=== PATIENT | male | born 1945 | race Caucasian/White ===

== ENCOUNTER 2020-01-02 11:21 | Inpatient (IN) ==
--- NOTE | 2020-01-02 12:01 | Emergency Department Note ---
General Adult HPI - General Chief complaint: Fall Stated complaint: Possible hit to head, cough Time Seen by Provider: 01/02/20 11:57 Source: patient Mode of arrival: ambulatory Limitations: no limitations - History of Present Illness HPI Narrative: Patient presents emergency department via EMS for evaluation of confusion and fall. Patient has a 2-year history of problems with confusion. Normally his neighbor checks in on him. Last night the neighbor called and the patient did not answer this morning the neighbor let themselves into the patient's home and found the patient on the floor. It was unknown how long patient had been on the floor neighbor called EMS for evaluation. Patient is brought to the emergency department via EMS. He does have a bruise above his right eye. He states that he feels a little bit lightheaded but otherwise is feeling fine. He has had a cough. No other complaints. - Related Data Home Medications Medication Instructions Recorded Confirmed Aspirin [Adult Low Dose Aspirin EC] 81 mg PO HS 05/06/15 05/09/15 Carvedilol [Coreg] 12.5 mg PO DAILY 05/06/15 05/09/15 Ezetimibe/Simvastatin [Vytorin 1 each PO HS 05/06/15 05/09/15 10-10 mg Tablet] Furosemide [Lasix] 80 mg PO BID 05/06/15 05/09/15 Gabapentin 600 mg PO BID 05/06/15 05/09/15 Glucosamine HCl 1,500 mg PO BID 05/06/15 05/09/15 Loratadine [Loradamed] 10 mg PO DAILY 05/06/15 05/09/15 Losartan [Cozaar] 25 mg PO DAILY 05/06/15 05/09/15 Methocarbamol [Robaxin] 1 tab PO HS 05/06/15 05/09/15 Mexiletine [Mexilitine] 150 mg PO BID 05/06/15 05/09/15 Potassium Chloride [Kdur] 10 meq PO DAILY 05/06/15 05/09/15 traMADol [Ultram] 1 tab PO TID 05/06/15 05/09/15 traZODone HCL [Desyrel] 100 mg PO HS 05/06/15 05/09/15 Benzonatate 200 mg PO TID 05/09/15 05/09/15 Promethazine HCl/Codeine 5 ml PO Q4-6HP PRN 05/09/15 05/09/15 [Promethazine-Codeine Syrup] Previous Rx's Medication Instructions Recorded Albuterol Sulfate [Proair Hfa] 8.5 gm IH Q3-4HP PRN #1 hfa.aer.ad 05/06/15 Acetaminophen W/Codeine #3 1 tab PO Q4-6HP PRN #20 tab 12/08/19 [Tylenol #3] HYDROcodone/ACETAMINOPHEN [[place] 1 each PO Q4H PRN #20 tab 12/17/19 5-325 Tablet] Allergies Allergy/AdvReac Type Severity Reaction Status Date / Time piroxicam [From Feldene] Allergy Severe Rash Verified 03/13/19 17:33 Review of Systems Review of Systems: As above, all other system reviewed and negative. Past Medical History - Past Medical History Attestation: Yes: The following information was validated with the patient. Medical history: Reports: atrial fibrillation Surgical history ED: Reports: appendectomy, coronary bypass (CABG) - Social History smoking status: Former smoker Alcohol use: Reports: Occasionally Drug use: Reports: none Physical Exam Limitations: no limitations General appearance: alert Head: normocephalic, other (Bruise above right eye) Eye: Present: normal appearance, PERRL, EOMI ENT: Present: normal exam Neck: Present: normal inspection, full ROM Respiratory: Present: other (Diminished) Extremities: Present: normal inspection Neurological: Present: alert, oriented X3, CN II-XII intact Psychiatric: Present: normal affect Skin: Present: warm Course Vital Signs Temperature 97.3 F 01/02/20 11:24 Pulse Rate 70 01/02/20 11:24 Respiratory Rate 16 01/02/20 11:24 Blood Pressure 113/61 01/02/20 11:24 Pulse Oximetry (%) 98 01/02/20 11:24 Temperature 97.6 F 01/02/20 13:46 Pulse Rate 70 01/02/20 13:46 Respiratory Rate 17 01/02/20 13:46 Blood Pressure 118/57 01/02/20 12:01 Pulse Oximetry (%) 100 01/02/20 13:46 Medical Decision Making - [facility] Narrative Medical decision making narrative: Emergency department course: Patient is hydrated IV fluids. I spoke with the on-call hospitalist. Case reviewed in detail. Hospitalist agreed with admission. Impression: Rhabdomyolysis, confusion Plan: As above - Lab Data Lab results reviewed: Yes I reviewed the patient's lab results. Result diagrams: 01/02/20 12:11 01/02/20 12:11 Lab Results 01/02/20 01/02/20 Range/Units 12:11 12:11 WBC 15.5 H (4.50-11.00) K/mcL RBC 3.64 L (4.63-6.08) M/mcL Hgb 13.3 L (13.7-17.5) g/dL Hct 36.9 L (40.1-51.0) % MCV 101.4 H (80.0-100.0) fL MCH 36.5 H (26.0-34.0) pg MCHC 36.0 (31.0-36.0) g/dL RDW 12.5 (11.5-14.5) % Plt Count 262 (140-440) K/mcL MPV 9.8 (7.4-10.4) fL Gran % 87.4 H (38.0-78.0) % Lymph % (Auto) 3.9 L (15.5-49.0) % [place] % (Auto) 8.5 (1.0-12.0) % Eos % (Auto) 0.1 (0.0-7.0) % Baso % (Auto) 0.1 (0.0-2.0) % Gran # 13.52 H (1.80-8.00) K/mcL Lymph # (Auto) 0.61 L (1.50-4.80) K/mcL [place] # (Auto) 1.31 H (0.10-0.90) K/mcL Eos # (Auto) 0.01 (0.00-0.70) K/mcL Baso # (Auto) 0.02 (0.00-0.30) K/mcL Sodium 121 L (133-145) mmol/L Potassium 4.2 (3.3-5.1) mmol/L Chloride 85 L (96-108) mmol/L Carbon Dioxide 24 (22-30) mmol/L Anion Gap 12.0 (8-16) BUN 11 (8-23) mg/dl Creatinine 0.7 (0.7-1.2) mg/dl GFR Calculation 94 Glucose 103 (70-105) mg/dL Calcium 8.8 (8.6-10.4) mg/dl Total Bilirubin 1.5 H (0.0-1.0) mg/dL AST 65 H (0-37) U/l ALT 27 (0-40) U/l Alkaline Phosphatase 84 (39-117) U/L Total Creatine Kinase 1121 H (24-195) IU/L Total Protein 6.5 (5.9-8.4) gm/dL Albumin 3.4 (3.2-5.2) gm/dL Globulin 3.1 (2.2-3.7) gm/dL Albumin/Globulin Ratio 1.1 (1.0-2.3) - Radiology Data Radiology results reviewed: Yes I reviewed the patient's radiology results. Disposition Pt seen by SOUND EFFECTS SUPERVISOR/PA only: No Clinical Impression: Rhabdomyolysis, Confusion Disposition: Still a Patient Referrals: Trina Haddad MD [Primary Care Provider] -
--- NOTE | 2020-01-02 12:52 | Cat Scan Report ---
INDICATION: CONFUSION, HEAD INJURY COMPARISON: None. TECHNIQUE: Axial noncontrast-enhanced images through the brain. Sagittally and coronally reformatted images. FINDINGS: Cerebral hemispheres:Negative. No intra-axial abnormality. No intra-axial hematoma. No localized mass effect. Brain volume is within normal limits. No hydrocephalus Brainstem and cerebellum:No intra-axial abnormality Extra-axial:No acute hemorrhage. No subdural or epidural hematoma. No subarachnoid hemorrhage. Basilar cisterns are normal Calvarial:No calvarial fracture. No lytic lesion Temporal bones are negative. No destructive lesions Soft tissue:There may be a scalp hematoma over the vertex. No other scalp hematoma. Clinical correlation necessary IMPRESSION: 1. No intracranial abnormality 2. Probable small scalp hematoma at the vertex. No calvarial fracture The exam was performed using radiation dose optimization techniques including, but not limited to, automated exposure control, adjustment of the mA and/or kV according to patient size and use of iterative reconstruction technique. Interpreted and Authenticated by: Leonidas Fowler 01/02/20
--- NOTE | 2020-01-02 12:55 | XRay Report ---
INDICATION: CONFUSION, COUGH TECHNIQUE: AP portable upright chest x-ray COMPARISON: Previous chest x-ray dated 04/10/2019 FINDINGS:Left transvenous pacemaker leads in unchanged positions. Previous median sternotomy and appearance consistent with coronary artery bypass Lungs:Lungs are negative. No focal pulmonary parenchymal infiltrate or mass Heart, vascular:No significant cardiomegaly. Pulmonary vascularity is normal. No pulmonary edema or pulmonary congestion Mediastinum, alejandro:No mediastinal widening. No hilar mass Pleura:No pleural fluid. No pleural-based mass or calcification Skeletal:Negative. IMPRESSION: 1. Previous coronary artery bypass procedure. Left transvenous pacemaker leads are unchanged 2. No acute abnormality. No interval change since 04/10/2019 Interpreted and Authenticated by: Leonidas Fowler 01/02/20
[2020-01-02 13:10] LABS: Basophils # (Auto) 0.02 K/mcL (0.00-0.30); Basophils % (Auto) 0.1 % (0.0-2.0); Eosinophils # (Auto) 0.01 K/mcL (0.00-0.70); Eosinophils % (Auto) 0.1 % (0.0-7.0); Granulocytes % (Auto) 87.4 % (38.0-78.0); Hematocrit 36.9 % (40.1-51.0); Hemoglobin 13.3 g/dL (13.7-17.5); Lymphocytes # (Auto) 0.61 K/mcL (1.50-4.80); Lymphocytes % (Auto) 3.9 % (15.5-49.0); Mean Cell Volume 101.4 fL (80.0-100.0); Mean Platelet Volume 9.8 fL (7.4-10.4); Monocytes # (Auto) 1.31 K/mcL (0.10-0.90); Monocytes % (Auto) 8.5 % (1.0-12.0); Platelet Count 262 K/mcL (140-440); RBC 3.64 M/mcL (4.63-6.08); Red Cell Distribution Width 12.5 % (11.5-14.5); WBC 15.5 K/mcL (4.50-11.00)
[2020-01-02 13:20] LABS: ALT/SGPT 27 U/l (0-40); AST/SGOT 65 U/l (0-37); Albumin 3.4 gm/dL (3.2-5.2); Albumin/Globulin Ratio 1.1 (1.0-2.3); Alkaline Phosphatase 84 U/L (39-117); Bilirubin,Total 1.5 mg/dL (0.0-1.0); Calcium 8.8 mg/dl (8.6-10.4); Carbon Dioxide 24 mmol/L (22-30); Globulin 3.1 gm/dL (2.2-3.7); Glomerular Filtration Rate 94; Glucose 103 mg/dL (70-105)
[2020-01-02 13:22] LABS: Blood Urea Nitrogen 11 mg/dl (8-23); Chloride 85 mmol/L (96-108); Creatine Kinase 1121 IU/L (24-195)
[2020-01-02] MEDS ORDERED: 0.9 % SODIUM CHLORIDE 1,000 ML IV ONE (13:30)
--- NOTE | 2020-01-02 15:37 | Emergency Department Note ---
General Adult HPI - General Chief complaint: Fall Stated complaint: Possible hit to head, cough Time Seen by Provider: 01/02/20 11:57 Source: patient Mode of arrival: ambulatory Limitations: no limitations - Related Data Home Medications Medication Instructions Recorded Confirmed Aspirin [Adult Low Dose Aspirin EC] 81 mg PO HS 05/06/15 05/09/15 Carvedilol [Coreg] 12.5 mg PO DAILY 05/06/15 05/09/15 Ezetimibe/Simvastatin [Vytorin 1 each PO HS 05/06/15 05/09/15 10-10 mg Tablet] Furosemide [Lasix] 80 mg PO BID 05/06/15 05/09/15 Gabapentin 600 mg PO BID 05/06/15 05/09/15 Glucosamine HCl 1,500 mg PO BID 05/06/15 05/09/15 Loratadine [Loradamed] 10 mg PO DAILY 05/06/15 05/09/15 Losartan [Cozaar] 25 mg PO DAILY 05/06/15 05/09/15 Methocarbamol [Robaxin] 1 tab PO HS 05/06/15 05/09/15 Mexiletine [Mexilitine] 150 mg PO BID 05/06/15 05/09/15 Potassium Chloride [Kdur] 10 meq PO DAILY 05/06/15 05/09/15 traMADol [Ultram] 1 tab PO TID 05/06/15 05/09/15 traZODone HCL [Desyrel] 100 mg PO HS 05/06/15 05/09/15 Benzonatate 200 mg PO TID 05/09/15 05/09/15 Promethazine HCl/Codeine 5 ml PO Q4-6HP PRN 05/09/15 05/09/15 [Promethazine-Codeine Syrup] Previous Rx's Medication Instructions Recorded Albuterol Sulfate [Proair Hfa] 8.5 gm IH Q3-4HP PRN #1 hfa.aer.ad 05/06/15 Acetaminophen W/Codeine #3 1 tab PO Q4-6HP PRN #20 tab 12/08/19 [Tylenol #3] HYDROcodone/ACETAMINOPHEN [[place] 1 each PO Q4H PRN #20 tab 12/17/19 5-325 Tablet] Allergies Allergy/AdvReac Type Severity Reaction Status Date / Time piroxicam [From Feldene] Allergy Severe Rash Verified 03/13/19 17:33 Past Medical History - Past Medical History Medical history: Reports: atrial fibrillation Surgical history ED: Reports: appendectomy, coronary bypass (CABG) - Social History smoking status: Former smoker Alcohol use: Reports: Occasionally Drug use: Reports: none Physical Exam Limitations: no limitations General appearance: alert Course Vital Signs Temperature 97.3 F 01/02/20 11:24 Pulse Rate 70 01/02/20 11:24 Respiratory Rate 16 01/02/20 11:24 Blood Pressure 113/61 01/02/20 11:24 Pulse Oximetry (%) 98 01/02/20 11:24 Temperature 97.6 F 01/02/20 13:46 Pulse Rate 73 01/02/20 14:46 Respiratory Rate 18 01/02/20 15:05 Blood Pressure 151/65 01/02/20 15:05 Pulse Oximetry (%) 98 01/02/20 14:46 Medical Decision Making - [facility] Narrative Medical decision making narrative: EKG showed: Sinus rhythm, nonspecific and intraventricular conduction delay, no acute ischemic changes. - Lab Data Result diagrams: 01/02/20 12:11 01/02/20 12:11 Lab Results 01/02/20 01/02/20 Range/Units 12:11 12:11 WBC 15.5 H (4.50-11.00) K/mcL RBC 3.64 L (4.63-6.08) M/mcL Hgb 13.3 L (13.7-17.5) g/dL Hct 36.9 L (40.1-51.0) % MCV 101.4 H (80.0-100.0) fL MCH 36.5 H (26.0-34.0) pg MCHC 36.0 (31.0-36.0) g/dL RDW 12.5 (11.5-14.5) % Plt Count 262 (140-440) K/mcL MPV 9.8 (7.4-10.4) fL Gran % 87.4 H (38.0-78.0) % Lymph % (Auto) 3.9 L (15.5-49.0) % [place] % (Auto) 8.5 (1.0-12.0) % Eos % (Auto) 0.1 (0.0-7.0) % Baso % (Auto) 0.1 (0.0-2.0) % Gran # 13.52 H (1.80-8.00) K/mcL Lymph # (Auto) 0.61 L (1.50-4.80) K/mcL [place] # (Auto) 1.31 H (0.10-0.90) K/mcL Eos # (Auto) 0.01 (0.00-0.70) K/mcL Baso # (Auto) 0.02 (0.00-0.30) K/mcL Sodium 121 L (133-145) mmol/L Potassium 4.2 (3.3-5.1) mmol/L Chloride 85 L (96-108) mmol/L Carbon Dioxide 24 (22-30) mmol/L Anion Gap 12.0 (8-16) BUN 11 (8-23) mg/dl Creatinine 0.7 (0.7-1.2) mg/dl GFR Calculation 94 Glucose 103 (70-105) mg/dL Calcium 8.8 (8.6-10.4) mg/dl Total Bilirubin 1.5 H (0.0-1.0) mg/dL AST 65 H (0-37) U/l ALT 27 (0-40) U/l Alkaline Phosphatase 84 (39-117) U/L Total Creatine Kinase 1121 H (24-195) IU/L Total Protein 6.5 (5.9-8.4) gm/dL Albumin 3.4 (3.2-5.2) gm/dL Globulin 3.1 (2.2-3.7) gm/dL Albumin/Globulin Ratio 1.1 (1.0-2.3) Disposition Pt seen by REAL ESTATE ACCOUNTANT/PA only: No Clinical Impression: Rhabdomyolysis, Confusion Disposition: Still a Patient Referrals: Trina Haddad MD [Primary Care Provider] -
[2020-01-02] MEDS ORDERED: LACTULOSE 20 GM/30 ML ORAL.SOL PO PRN ×2 (17:26→19:14)
[2020-01-02] MEDS ORDERED: ONDANSETRON 4 MG/2 ML VIAL IV PRN ×2 (17:26→19:14)
[2020-01-02] MEDS ORDERED: 0.9 % SODIUM CHLORIDE 1,000 ML IV SCH ×2 (17:30→19:14)
--- NOTE | 2020-01-02 17:52 | Internal Med History&Physical ---
Medical - H&P: HPI Patient information: Note initiated : 01/02/20 at 5:43 pm Service Date, if different from initiated Date: [] Patient: Geovanny Berumen a 74 y/o M admitted on for Possible Hit To Head, Cough. Chief Complaint: [Rhabdomyolysis] History of present illness: Mr. Berumen is a 74 year old M with a history of COPD, CHF, and confusion who was brought to the ER because of he was found to be on floor. Patient is a poor historian and almost all medical information is obtained from ER physician and chart. Patient has been having confusion over the past 2 years. His neighbor normally checks in on him. But last night he did not answer. This morning the neighbor went into pt's house and found him on the floor. Nobody knows how long patient had been on floor. He was brought to the ER by EMS. In the ER, was found to be mildly elevated, 1121. When I saw this patient in the ER, symptoms mentioned above, He has mild dry cough. Otherwise he was fine. Denied headache, dizziness, chest pain, shortness of breath, abdominal pain, nausea, vomiting, fever, chills, dysuria. Review of systems: Positive for cough all other systems were reviewed and are negative. Medical - H&P: PMH Problems Reviewed: Yes Medical history: COPD, CHF, and a high blood pressure Family history: reviewed and not pertinent Have you smoked in the last 12 months: No Drug use: none Alcohol use: none Medical - H&P: Meds Home Medications Medication Instructions Recorded Confirmed Type Albuterol Sulfate [Proair Hfa] 8.5 gm IH Q3-4HP PRN #1 hfa.aer.ad 05/06/15 05/09/15 Rx Aspirin [Adult Low Dose Aspirin EC] 81 mg PO HS 05/06/15 05/09/15 History Carvedilol [Coreg] 12.5 mg PO DAILY 05/06/15 05/09/15 History Ezetimibe/Simvastatin [Vytorin 1 each PO HS 05/06/15 05/09/15 History 10-10 mg Tablet] Furosemide [Lasix] 80 mg PO BID 05/06/15 05/09/15 History Gabapentin 600 mg PO BID 05/06/15 05/09/15 History Glucosamine HCl 1,500 mg PO BID 05/06/15 05/09/15 History Loratadine [Loradamed] 10 mg PO DAILY 05/06/15 05/09/15 History Losartan [Cozaar] 25 mg PO DAILY 05/06/15 05/09/15 History Methocarbamol [Robaxin] 1 tab PO HS 05/06/15 05/09/15 History Mexiletine [Mexilitine] 150 mg PO BID 05/06/15 05/09/15 History Potassium Chloride [Kdur] 10 meq PO DAILY 05/06/15 05/09/15 History traMADol [Ultram] 1 tab PO TID 05/06/15 05/09/15 History traZODone HCL [Desyrel] 100 mg PO HS 05/06/15 05/09/15 History Benzonatate 200 mg PO TID 05/09/15 05/09/15 History Promethazine HCl/Codeine 5 ml PO Q4-6HP PRN 05/09/15 05/09/15 History [Promethazine-Codeine Syrup] Acetaminophen W/Codeine #3 1 tab PO Q4-6HP PRN #20 tab 12/08/19 Rx [Tylenol #3] HYDROcodone/ACETAMINOPHEN [[place] 1 each PO Q4H PRN #20 tab 12/17/19 Rx 5-325 Tablet] Allergies Allergy/AdvReac Type Severity Reaction Status Date / Time piroxicam [From Luminate] Allergy Severe Rash Verified 03/13/19 17:33 Medical - H&P: Exam - Constitutional Vitals: Temp Pulse Resp BP Pulse Ox 97.6 F 69 15 109/96 100 01/02/20 13:46 01/02/20 17:24 01/02/20 17:24 01/02/20 17:24 01/02/20 17:24 - Other Additional findings: General -no acute distress Eyes - PERRLA, EOM intact ENT no rhinorrhea, no noticeable or palpable swelling, no redness or rash around throat or on face Neck supple, no JVD, no thyromegaly Respiratory: Lungs -clear; no wheezing or crackles. Cardiovascular - RRR no m/r/g, GI - Normal bowel sounds, no distended, soft. Extremeties - No edema, cyanosis or clubbing Hemo/lymphatic/immune no lymphadenopathy Neurological Alert and oriented x 2, focal neurological deficits. Psychiatry flat affect Medical - H&P: Reslt - Labs CBC & Chem 7: 01/02/20 12:11 01/02/20 12:11 Labs: Short CBC 01/02/20 Range/Units 12:11 WBC 15.5 H (4.50-11.00) K/mcL Hgb 13.3 L (13.7-17.5) g/dL Hct 36.9 L (40.1-51.0) % Plt Count 262 (140-440) K/mcL BMP 01/02/20 12:11 Sodium 121 L Potassium 4.2 Chloride 85 L Carbon Dioxide 24 BUN 11 Creatinine 0.7 Glucose 103 Calcium 8.8 Cardiac Enzymes 01/02/20 Range/Units 12:11 Total Creatine Kinase 1121 H (24-195) IU/L Liver Function 01/02/20 Range/Units 12:11 Total Bilirubin 1.5 H (0.0-1.0) mg/dL AST 65 H (0-37) U/l ALT 27 (0-40) U/l Alkaline Phosphatase 84 (39-117) U/L Albumin 3.4 (3.2-5.2) gm/dL Medical - H&P: A/P - Narrative A/P Narrative: Assessment: 1. Fall/syncope 2. Confusion 3. Rhabdomyolysis, CK 1121 4. Cough 5. COPD 6. Chronic systolic CHF, EF 30-35% on 08/19/2019 7. Leukocytosis 8. Hyponatremia 9. Elevation of liver enzymes 10. HTN 11. LBBB on EKG Plan: 1. In the ER CT of the head negative acute pathology Echocardiogram on August 19, 2019 -EF of 30 to 35% EKG no arrhythmia Carotid ultrasound on August 19, 2019 - Endovascular stent in the right internal carotid artery. No stenosis or flow disturbance Heterogeneous atherosclerotic plaque in the proximal left internal carotid artery and distal left common carotid artery. Estimated 50-69% diameter stenosis cardiac monitor Pulse ox oxygen 2. For confusion, CT of the head negative acute pathology. As per ER physician Dr. Dyer, confusion over the past 2 years Monitor 3. CK 1121 Repeat CK in am IVF Repeat renal function in the morning 4. Patient has a dry cough Covid 19 screen was sent in the ER Droplet plus precaution 5. COPD seems to be stable 6. Intake and output Daily weight Home Lasix is on hold 7. Na 121, IVF Na level increase < 8mEq/24hrs. Repeat BMP 8. Repeat elevated in the morning 9. Continue carvedilol and losartan for high blood pressure 10. EKG showed LBBB. No previous EKG available No chest pain Troponin Aspirin and Lipitor did not order because pt had fall last night and has Rhabdomyolysis 11. DVT prophylaxis: SCD. No pharmacological DVT prophylaxis due to recent fall 12. CODE STATUS: Full
[2020-01-02 19:53] LABS: Creatine Kinase 946 IU/L (24-195)
[2020-01-02] MEDS: 0.9 % SODIUM CHLORIDE 10 ML SYRINGE IV SCH (20:06)
[2020-01-02] MEDS: DOCUSATE SODIUM 100 MG CAPSULE PO SCH (20:06)
[2020-01-02] MEDS ORDERED: DOCUSATE SODIUM 100 MG CAPSULE PO SCH (21:00)
[2020-01-02] MEDS ORDERED: 0.9 % SODIUM CHLORIDE 10 ML SYRINGE IV SCH (22:00)
[2020-01-03 02:43] LABS: Blood Urea Nitrogen 9 mg/dl (8-23); Calcium 8.3 mg/dl (8.6-10.4); Carbon Dioxide 24 mmol/L (22-30); Chloride 85 mmol/L (96-108); Glomerular Filtration Rate 100; Glucose 105 mg/dL (70-105)
[2020-01-03] MEDS: 0.9 % SODIUM CHLORIDE 10 ML SYRINGE IV SCH ×3 (05:33→21:41)
[2020-01-03 06:38] LABS: Hematocrit 33.7 % (40.1-51.0); Hemoglobin 11.8 g/dL (13.7-17.5); Mean Cell Volume 104.7 fL (80.0-100.0); Mean Platelet Volume 9.9 fL (7.4-10.4); Platelet Count 238 K/mcL (140-440); RBC 3.22 M/mcL (4.63-6.08); Red Cell Distribution Width 12.8 % (11.5-14.5); WBC 12.8 K/mcL (4.50-11.00)
[2020-01-03 06:47] LABS: INR 1.2 (0.9-1.1); Prothrombin Time 15.8 sec (11.9-14.5)
[2020-01-03 07:11] LABS: ALT/SGPT 27 U/l (0-40); AST/SGOT 59 U/l (0-37); Alkaline Phosphatase 75 U/L (39-117); Bilirubin,Total 1.1 mg/dL (0.0-1.0); Calcium 8.4 mg/dl (8.6-10.4); Carbon Dioxide 25 mmol/L (22-30); Globulin 2.9 gm/dL (2.2-3.7); Glomerular Filtration Rate 108; Glucose 83 mg/dL (70-105)
[2020-01-03 07:18] LABS: Blood Urea Nitrogen 7 mg/dl (8-23); Chloride 90 mmol/L (96-108)
[2020-01-03 07:36] LABS: Band Neutrophils % 1 % (0-10); Lymphocytes % 4 % (15-49); Macrocytosis 2+ (NONE SEEN); Monocytes % (Manual) 8 % (1-12); Platelet Estimate NORMAL (NORMAL); RBC Morphology ABNORM (NORMAL); Segmented Neutrophils % 87 % (38-78)
[2020-01-03] MEDS ORDERED: CARVEDILOL 6.25 MG TABLET PO SCH (08:00)
[2020-01-03] MEDS ORDERED: LOSARTAN 25 MG TABLET PO SCH (09:00)
[2020-01-03] MEDS: LOSARTAN 25 MG TABLET PO SCH (09:23)
[2020-01-03] MEDS: CARVEDILOL 6.25 MG TABLET PO SCH ×2 (09:23→17:07)
[2020-01-03] MEDS: DOCUSATE SODIUM 100 MG CAPSULE PO SCH ×2 (09:23→20:59)
--- NOTE | 2020-01-03 11:34 | Event Note ---
Advanced Care Planning Documents: I called daughter Mya and updated pt's condition to her. I also explained the process regarding CPR, defibrillation, shock, and intubation and medication treatment to the patient. Mya agreed with CPR and intubation. But she does not want his father to live on machine for life.
[2020-01-03] MEDS: LORazepam 1 MG TABLET PO PRN ×4 (13:23→22:10)
[2020-01-03] MEDS: hydrOXYzine 25 MG TABLET PO PRN ×2 (14:03→20:19)
--- NOTE | 2020-01-03 17:23 | Internal Med Progress Note ---
Medical - PN: Subj Patient information: Note initiated : 01/03/20 at 5:19 pm Service Date, if different from initiated Date: [] Patient: Geovanny Berumen a 74 y/o M admitted on 01/02/20 for Possible Hit To Head, Cough. Chief Complaint: [] Mr. Berumen is a 74 year old M with a history of COPD, CHF, and confusion who was brought to the ER because of he was found to be on floor. Patient is a poor historian and almost all medical information is obtained from ER physician and chart. Patient has been having confusion over the past 2 years. His neighbor normally checks in on him. But last night he did not answer. This morning the neighbor went into pt's house and found him on the floor. Nobody knows how long patient had been on floor. He was brought to the ER by EMS. In the ER, was found to be mildly elevated, 1121. When I saw this patient in the ER, symptoms mentioned above, He has mild dry cough. Otherwise he was fine. Denied headache, dizziness, chest pain, shortness of breath, abdominal pain, nausea, vomiting, fever, chills, dysuria. 01/01 Pt does not have complaints. Denies,cough, nausea, vomiting, chest pain, or shortness of breath. He is confused at time and pull off CARLOS Vital signs are stable WBC went down to 12.8 from 15.5 Na 124 CK went down to 726 BNP 2815 - Constitutional Vitals: Vital Signs Temp Pulse Resp BP Pulse Ox 98.2 F 74 21 118/87 94 01/03/20 12:01 01/03/20 07:11 01/03/20 16:01 01/03/20 16:01 01/03/20 07:11 Period Temp Pulse Resp BP Sys/Urrutia Pulse Ox Last 24 Hr 97.6 F-98.8 F 69-86 14-34 105-136/47-107 94-100 Intake and Output 01/03/20 01/03/20 01/03/20 05:59 13:59 21:59 Intake Total 240 1648 240 Output Total 550 451 201 Balance -310 1197 39 Weight 90.31 kg Patient Weight 01/04/20 05:59 Weight 90.31 kg Intake & Output: Intake & Output 01/03/20 01/03/20 01/03/20 05:59 13:59 21:59 Intake Total 240 1648 240 Output Total 550 451 201 Balance -310 1197 39 Weight 90.31 kg Intake: IV 848 Sodium Chloride 0.9% 1,000 ml @ 848 50 mls/hr IV .Q20H [facility] Rx#: [id number] Oral 240 800 240 Output: Void Amount 550 450 200 # of times incontinent of urine 1 1 Other: Meal Breakfast Lunch Percent of Meal Consumed 100% 100% Urine Appearance Clear Urine Color Dark [place] - Additional findings Additional findings: General -no acute distress Eyes - PERRLA, EOM intact ENT no rhinorrhea, no noticeable or palpable swelling, no redness or rash around throat or on face Neck supple, no JVD, no thyromegaly Respiratory: Lungs -clear; no wheezing or crackles. Cardiovascular - RRR no m/r/g, GI - Normal bowel sounds, no distended, soft. Extremeties - No edema, cyanosis or clubbing Hemo/lymphatic/immune no lymphadenopathy Neurological Alert and oriented x 2, focal neurological deficits. Psychiatry flat affect Medical - PN: Obj Da - Labs CBC & Chem 7: 01/03/20 04:48 01/03/20 04:48 Labs: Abnormal Lab Results 01/03/20 01/03/20 01/03/20 04:48 04:48 04:48 WBC RBC Hgb Hct MCV MCH Gran % Lymph % (Auto) Gran # Lymph # (Auto) [place] # (Auto) Seg Neutrophils % Lymphocytes % RBC Morphology Macrocytosis PT 15.8 H INR 1.2 H Sodium 124 L Chloride 90 L BUN 7 L Creatinine 0.5 L Calcium 8.4 L Total Bilirubin 1.1 H AST 59 H Total Creatine Kinase 726 H NT-Pro-B Natriuret Pep 2815.0 H Albumin 3.0 L 01/03/20 01/02/20 01/02/20 04:48 22:15 17:55 WBC 12.8 H RBC 3.22 L Hgb 11.8 L Hct 33.7 L MCV 104.7 H MCH 36.6 H Gran % Lymph % (Auto) Gran # Lymph # (Auto) [place] # (Auto) Seg Neutrophils % 87 H Lymphocytes % 4 L RBC Morphology Abnorm A Macrocytosis 2+ A PT INR Sodium 120 L Chloride 85 L BUN Creatinine 0.6 L Calcium 8.3 L Total Bilirubin AST Total Creatine Kinase 946 H NT-Pro-B Natriuret Pep Albumin 01/02/20 01/02/20 12:11 12:11 WBC 15.5 H RBC 3.64 L Hgb 13.3 L Hct 36.9 L MCV 101.4 H MCH 36.5 H Gran % 87.4 H Lymph % (Auto) 3.9 L Gran # 13.52 H Lymph # (Auto) 0.61 L [place] # (Auto) 1.31 H Seg Neutrophils % Lymphocytes % RBC Morphology Macrocytosis PT INR Sodium 121 L Chloride 85 L BUN Creatinine Calcium Total Bilirubin 1.5 H AST 65 H Total Creatine Kinase 1121 H NT-Pro-B Natriuret Pep Albumin Meds: Medications [facility] Last Admin: 01/03/20 17:07 Dose: 6.25 mg Documented by: Docusate Sodium (Colace) 100 mg PO BID [facility] Last Admin: 01/03/20 09:23 Dose: 100 mg Documented by: Hydroxyzine HCl (Atarax) 0 mg PO Q4HP PRN PRN Reason: Anxiety/Agitation Last Admin: 01/03/20 14:03 Dose: 50 mg Documented by: Lactulose (Cephulac) 10 gm PO DAILYP PRN PRN Reason: Constipation Lorazepam (Ativan) 1 mg PO Q2HP PRN PRN Reason: CIWA-A >6 or HR >100 Last Admin: 01/03/20 17:07 Dose: 1 mg Documented by: Losartan Potassium (Cozaar) 25 mg PO DAILY [facility] Last Admin: 01/03/20 09:23 Dose: 25 mg Documented by: Ondansetron HCl (Zofran) 4 mg IV Q4HP PRN; Protocol PRN Reason: Nausea And Vomiting Sodium Chloride (Saline Flush) 10 ml IV Q8 [facility] Last Admin: 01/03/20 14:24 Dose: 10 ml Documented by: Medical - PN: A/P - Time Spent With Patient Total time spent is greater than 50% in coordination of care (as documented) at patient's floor/unit and/or counseling patient: - Narrative A/P Narrative: A/P Narrative: Assessment: 1. Fall/syncope 2. Confusion 3. Rhabdomyolysis, CK 1121 4. Cough 5. COPD 6. Chronic systolic CHF, EF 30-35% on 08/19/2019 7. Leukocytosis 8. Hyponatremia 9. Elevation of liver enzymes 10. HTN 11. LBBB on EKG Plan: 1. In the ER CT of the head negative acute pathology Echocardiogram on August 19, 2019 -EF of 30 to 35% EKG no arrhythmia Carotid ultrasound on August 19, 2019 - Endovascular stent in the right internal carotid artery. No stenosis or flow disturbance Heterogeneous atherosclerotic plaque in the proximal left internal carotid artery and distal left common carotid artery. 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 For confusion, CT of the head negative acute pathology. As per ER physician Dr. Dyer, confusion over the past 2 years. Discussed with daughter who endorsed that he has been having confusion and progressively worsening over the past 1 or 2 years. Monitor PT 3. CK trending down Repeat CK in am IVF Repeat renal function in the morning 4. Patient has a dry cough Covid 19 screen - pending Droplet plus precaution 5. COPD seems to be stable 6. Intake and output Daily weight Home Lasix is on hold 7. Na 124, IVF Na level increase < 8mEq/24hrs. Repeat BMP 8. Repeat elevated in the morning 9. Continue carvedilol and losartan for high blood pressure 10. EKG showed LBBB. No previous EKG available No chest pain Troponin negative Started Aspirin but Lipitor did not order because pt has Rhabdomyolysis 11. BNP 2815 Echocardiogram on August 19, 2019 -EF of 30 to 35% intake and output continue losartan Home meds include lasix 80mg po bid. I will start 40mg bid. 12. DVT prophylaxis: SCD. No pharmacological DVT prophylaxis due to recent fall 13. CODE STATUS: Full Medical - PN: Qual - VTE Deep Vein Thrombosis/Pulmonary Embolism Present on Admission: No
[2020-01-03] MEDS ORDERED: ALBUTEROL SULFATE 200 PUFF INHALER INH PRN (17:30)
[2020-01-03] MEDS ORDERED: traZODone HCL 50 MG TABLET PO ONE (18:29)
[2020-01-03] MEDS: GABAPENTIN 300 MG CAPSULE PO SCH (20:59)
[2020-01-03] MEDS: BENZONATATE 100 MG CAPSULE PO SCH (20:59)
[2020-01-03] MEDS: ASPIRIN 81 MG TAB.CHEW PO SCH (21:00)
[2020-01-03] MEDS: MEXILETINE 150 MG CAPSULE PO SCH (21:40)
[2020-01-04 06:56] LABS: Hematocrit 36.1 % (40.1-51.0); Hemoglobin 12.7 g/dL (13.7-17.5); Mean Cell Volume 104.6 fL (80.0-100.0); Mean Corpuscular HGB Conc 35.2 g/dL (31.0-36.0); Mean Platelet Volume 10.1 fL (7.4-10.4); Platelet Count 255 K/mcL (140-440); RBC 3.45 M/mcL (4.63-6.08); Red Cell Distribution Width 12.9 % (11.5-14.5)
[2020-01-04] MEDS: 0.9 % SODIUM CHLORIDE 10 ML SYRINGE IV SCH ×3 (07:00→21:52)
[2020-01-04 07:20] LABS: ALT/SGPT 32 U/l (0-40); AST/SGOT 55 U/l (0-37); Albumin 3.2 gm/dL (3.2-5.2); Alkaline Phosphatase 80 U/L (39-117); Bilirubin,Total 0.9 mg/dL (0.0-1.0); Blood Urea Nitrogen 4 mg/dl (8-23); Calcium 8.4 mg/dl (8.6-10.4); Carbon Dioxide 24 mmol/L (22-30); Chloride 94 mmol/L (96-108); Globulin 3.3 gm/dL (2.2-3.7); Glomerular Filtration Rate 108; Glucose 82 mg/dL (70-105)
[2020-01-04] MEDS: GABAPENTIN 300 MG CAPSULE PO SCH ×2 (08:07→20:47)
[2020-01-04] MEDS: FUROSEMIDE 40 MG TABLET PO SCH ×2 (08:07→16:17)
[2020-01-04] MEDS: CARVEDILOL 6.25 MG TABLET PO SCH ×2 (08:08→17:12)
[2020-01-04] MEDS: DOCUSATE SODIUM 100 MG CAPSULE PO SCH ×2 (08:08→20:47)
[2020-01-04] MEDS: LOSARTAN 25 MG TABLET PO SCH (08:08)
[2020-01-04] MEDS: BENZONATATE 100 MG CAPSULE PO SCH ×3 (08:26→20:53)
[2020-01-04 08:46] LABS: Eosinophils % (Manual) 2 % (0-7); Lymphocytes % 13 % (15-49); Macrocytosis 1+ (NONE SEEN); Monocytes % (Manual) 10 % (1-12); Platelet Estimate NORMAL (NORMAL); RBC Morphology ABNORM (NORMAL); Segmented Neutrophils % 75 % (38-78)
[2020-01-04] MEDS ORDERED: LOSARTAN 25 MG TABLET PO SCH (09:00)
[2020-01-04] MEDS: MEXILETINE 200 MG CAPSULE PO SCH ×2 (11:25→20:47)
[2020-01-04] MEDS: ENOXAPARIN 40 MG/0.4 ML SYRINGE SQ SCH (11:27)
--- NOTE | 2020-01-04 11:46 | Internal Med Progress Note ---
Medical - PN: Subj Patient information: Note initiated : 01/04/20 at 11:32 am Service Date, if different from initiated Date: [] Patient: Geovanny Beruemn a 74 y/o M admitted on 01/02/20 for Possible Hit To Head, Cough. Chief Complaint: [] Interval history: Mr. Berumen is a 74 year old M with a history of COPD, CHF, and confusion who was brought to the ER because of he was found to be on floor. Patient is a poor historian and almost all medical information is obtained from ER physician and chart. Patient has been having confusion over the past 2 years. His neighbor normally checks in on him. But last night he did not answer. This morning the neighbor went into pt's house and found him on the floor. Nobody knows how long patient had been on floor. He was brought to the ER by EMS. In the ER, was found to be mildly elevated, 1121. When I saw this patient in the ER, symptoms mentioned above, He has mild dry cough. Otherwise he was fine. Denied headache, dizziness, chest pain, shortness of breath, abdominal pain, nausea, vomiting, fever, chills, dysuria. 01/01 Pt does not have complaints. Denies,cough, nausea, vomiting, chest pain, or shortness of breath. He is confused at time and removed CARLOS Vital signs are stable WBC went down to 12.8 from 15.5 Na 124 CK went down to 726 BNP 2815 01/02 Pt does not have new complaints, but he still has agitation at times. Trying to orientated him. Otherwise he is fine. Covid 19 result is still pending. 01/03 Pt does not have complaints. Denies,cough, nausea, vomiting, chest pain, or shortness of breath. BP is high at times Na 132 today Monitor tracing showed short time of VT. PT is asymptomatic. Review of systems: Positive for cough all other systems were reviewed and are negative. - Constitutional Vitals: Vital Signs Temp Pulse Resp BP Pulse Ox 99.6 F H 74 18 155/67 96 01/04/20 08:01 01/03/20 07:11 01/04/20 09:18 01/04/20 09:01 01/04/20 08:01 Period Temp Pulse Resp BP Sys/Urrutia Pulse Ox Last 24 Hr 97.4 F-99.6 F 13-29 95-162/45-107 95-97 Intake and Output 01/03/20 01/04/20 01/04/20 21:59 05:59 13:59 Intake Total 480 240 Output Total 453 2 700 Balance 27 238 -700 Weight 89.902 kg Intake & Output: Intake & Output 01/03/20 01/04/20 01/04/20 21:59 05:59 13:59 Intake Total 480 240 Output Total 453 2 700 Balance 27 238 -700 Weight 89.902 kg Intake: Oral 480 240 Output: Void Amount 450 700 # of times incontinent of urine 3 2 Other: Meal Dinner Breakfast Percent of Meal Consumed 50% 75% Feeding Ability Assist with Tray Set Up Urine Appearance Clear Urine Color Bright Yellow - Additional findings Additional findings: General -no acute distress Eyes - PERRLA, EOM intact ENT no rhinorrhea, no noticeable or palpable swelling, no redness or rash ar ound throat or on face Neck supple, no JVD, no thyromegaly Respiratory: Lungs -clear; no wheezing or crackles. Cardiovascular - RRR no m/r/g, GI - Normal bowel sounds, no distended, soft. Extremeties - No edema, cyanosis or clubbing Hemo/lymphatic/immune no lymphadenopathy Neurological Alert and oriented x 2, focal neurological deficits. Psychiatry flat affect Medical - PN: Obj Da - Labs CBC & Chem 7: 01/04/20 04:37 01/04/20 04:38 Labs: Abnormal Lab Results 01/04/20 01/04/20 01/04/20 04:38 04:38 04:37 WBC 13.0 H RBC 3.45 L Hgb 12.7 L Hct 36.1 L MCV 104.6 H MCH 36.8 H Gran % Lymph % (Auto) Gran # Lymph # (Auto) [place] # (Auto) Seg Neutrophils % Lymphocytes % 13 L RBC Morphology Abnorm A Macrocytosis 1+ A PT INR Sodium 132 L Chloride 94 L BUN 4 L Creatinine 0.5 L Calcium 8.4 L Total Bilirubin AST 55 H Total Creatine Kinase 323 H NT-Pro-B Natriuret Pep Albumin 01/03/20 01/03/20 01/03/20 04:48 04:48 04:48 WBC RBC Hgb Hct MCV MCH Gran % Lymph % (Auto) Gran # Lymph # (Auto) [place] # (Auto) Seg Neutrophils % Lymphocytes % RBC Morphology Macrocytosis PT 15.8 H INR 1.2 H Sodium 124 L Chloride 90 L BUN 7 L Creatinine 0.5 L Calcium 8.4 L Total Bilirubin 1.1 H AST 59 H Total Creatine Kinase 726 H NT-Pro-B Natriuret Pep 2815.0 H Albumin 3.0 L 01/03/20 01/02/20 01/02/20 04:48 22:15 17:55 WBC 12.8 H RBC 3.22 L Hgb 11.8 L Hct 33.7 L MCV 104.7 H MCH 36.6 H Gran % Lymph % (Auto) Gran # Lymph # (Auto) [place] # (Auto) Seg Neutrophils % 87 H Lymphocytes % 4 L RBC Morphology Abnorm A Macrocytosis 2+ A PT INR Sodium 120 L Chloride 85 L BUN Creatinine 0.6 L Calcium 8.3 L Total Bilirubin AST Total Creatine Kinase 946 H NT-Pro-B Natriuret Pep Albumin 01/02/20 01/02/20 12:11 12:11 WBC 15.5 H RBC 3.64 L Hgb 13.3 L Hct 36.9 L MCV 101.4 H MCH 36.5 H Gran % 87.4 H Lymph % (Auto) 3.9 L Gran # 13.52 H Lymph # (Auto) 0.61 L [place] # (Auto) 1.31 H Seg Neutrophils % Lymphocytes % RBC Morphology Macrocytosis PT INR Sodium 121 L Chloride 85 L BUN Creatinine Calcium Total Bilirubin 1.5 H AST 65 H Total Creatine Kinase 1121 H NT-Pro-B Natriuret Pep Albumin Meds: Medications Albuterol Sulfate (Ventolin) 1 puff INH Q3-4HP PRN PRN Reason: Wheezing Aspirin (Aspirin) 81 mg PO [facility] Last Admin: 01/03/20 21:00 Dose: 81 mg Documented by: Benzonatate (Tessalon) 200 mg PO TID [facility] Last Admin: 01/04/20 08:26 Dose: 200 mg Documented by: [facility] Last Admin: 01/04/20 08:08 Dose: 6.25 mg Documented by: Docusate Sodium (Colace) 100 mg PO BID [facility] Last Admin: 01/04/20 08:08 Dose: 100 mg Documented by: Enoxaparin Sodium (Lovenox) 40 mg SQ DAILY [facility] Last Admin: 01/04/20 11:27 Dose: 40 mg Documented by: Furosemide (Lasix) 40 mg PO BIDD [facility] Last Admin: 01/04/20 08:07 Dose: 40 mg Documented by: Gabapentin (Neurontin) 600 mg PO BID [facility] Last Admin: 01/04/20 08:07 Dose: 600 mg Documented by: Hydroxyzine HCl (Atarax) 0 mg PO Q4HP PRN PRN Reason: Anxiety/Agitation Last Admin: 01/03/20 20:19 Dose: 50 mg Documented by: Lactulose (Cephulac) 10 gm PO DAILYP PRN PRN Reason: Constipation Lorazepam (Ativan) 1 mg PO Q2HP PRN PRN Reason: CIWA-A >6 or HR >100 Last Admin: 01/03/20 22:10 Dose: 1 mg Documented by: Losartan Potassium (Cozaar) 25 mg PO DAILY [facility] Last Admin: 01/04/20 08:08 Dose: 25 mg Documented by: Mexiletine HCl (Mexiletine) 250 mg PO BID [facility] Last Admin: 01/04/20 11:25 Dose: 250 mg Documented by: Mexiletine HCl (Mexilitine) 150 mg PO DAILY@1500 [place] Ondansetron HCl (Zofran) 4 mg IV Q4HP PRN; Protocol PRN Reason: Nausea And Vomiting Sodium Chloride (Saline Flush) 10 ml IV Q8 [facility] Last Admin: 01/04/20 07:00 Dose: 10 ml Documented by: Medical - PN: A/P - Time Spent With Patient Total time spent is greater than 50% in coordination of care (as documented) at patient's floor/unit and/or counseling patient: - Narrative A/P Narrative: A/P Narrative: Assessment: 1. Fall/syncope 2. Confusion 3. Rhabdomyolysis, CK 1121 4. Cough 5. COPD 6. Chronic systolic CHF, EF 30-35% on 08/19/2019 7. Leukocytosis 8. Hyponatremia 9. Elevation of liver enzymes 10. HTN 11. LBBB on EKG 12. Non-sustained VT Plan: 1. In the ER CT of the head negative acute pathology Echocardiogram on August 19, 2019 -EF of 30 to 35% EKG no arrhythmia Carotid ultrasound on August 19, 2019 - Endovascular stent in the right internal carotid artery. No stenosis or flow disturbance Heterogeneous atherosclerotic plaque in the proximal left internal carotid artery and distal left common carotid artery. 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 For confusion, CT of the head negative acute pathology. As per ER physician Dr. Dyer, confusion over the past 2 years. Discussed with daughter who endorsed that he has been having confusion and progressively worsening over the past 1 or 2 years. Monitor PT 3. CK trending down IVF Repeat renal function in the morning 4. Patient has a dry cough Covid 19 screen - pending Droplet plus precaution 5. COPD seems to be stable 6. Intake and output Daily weight Home Lasix is on hold 7. Na 132, IVF Na level increase < 8mEq/24hrs. Repeat BMP 8. Repeat liver enzymes in the morning 9. Continue carvedilol and losartan for high blood pressure 10. EKG showed LBBB. No previous EKG available No chest pain Troponin negative Started Aspirin but Lipitor did not order because pt has Rhabdomyolysis 11. BNP 2815 Echocardiogram on August 19, 2019 -EF of 30 to 35% intake and output continue losartan Home meds include lasix 80mg po bid. I will start 40mg bid. 12. For non-sustained VT, K and Mag WNL resumed home mediletine 250mg bid and 150mg every 3pm. Daughter states he has an AICD. will call for interrogation. 13. DVT prophylaxis: Lovenox 14. CODE STATUS: Full Medical - PN: Qual - VTE Deep Vein Thrombosis/Pulmonary Embolism Present on Admission: No
[2020-01-04] MEDS: MEXILETINE 150 MG CAPSULE PO SCH ×2 (13:26→16:20)
[2020-01-04] MEDS ORDERED: PROCHLORPERAZINE 10 MG TABLET PO PRN (16:29)
[2020-01-04] MEDS: ASPIRIN 81 MG TAB.CHEW PO SCH (20:47)
[2020-01-04] MEDS: MIRTAZAPINE 15 MG TABLET PO SCH (20:47)
[2020-01-04] MEDS: SOTALOL 80 MG TABLET PO SCH (20:53)
[2020-01-05 05:11] LABS: Hematocrit 34.6 % (40.1-51.0); Hemoglobin 11.8 g/dL (13.7-17.5); Mean Cell Volume 105.8 fL (80.0-100.0); Mean Corpuscular HGB Conc 34.1 g/dL (31.0-36.0); Mean Platelet Volume 9.4 fL (7.4-10.4); Platelet Count 244 K/mcL (140-440); RBC 3.27 M/mcL (4.63-6.08); Red Cell Distribution Width 13.2 % (11.5-14.5)
[2020-01-05 05:30] LABS: ALT/SGPT 25 U/l (0-40); AST/SGOT 29 U/l (0-37); Albumin 2.8 gm/dL (3.2-5.2); Albumin/Globulin Ratio 0.9 (1.0-2.3); Alkaline Phosphatase 67 U/L (39-117); Bilirubin,Total 0.7 mg/dL (0.0-1.0); Calcium 8.3 mg/dl (8.6-10.4); Carbon Dioxide 27 mmol/L (22-30); Chloride 99 mmol/L (96-108); Glomerular Filtration Rate 108; Glucose 91 mg/dL (70-105)
[2020-01-05 05:32] LABS: Blood Urea Nitrogen 6 mg/dl (8-23)
[2020-01-05] MEDS: 0.9 % SODIUM CHLORIDE 10 ML SYRINGE IV SCH ×3 (05:52→20:51)
[2020-01-05 05:53] LABS: Band Neutrophils % 1 % (0-10); Basophils % (Manual) 1 % (0-2); Eosinophils % (Manual) 3 % (0-7); Lymphocytes % 24 % (15-49); Monocytes % (Manual) 15 % (1-12); Platelet Estimate NORMAL (NORMAL); RBC Morphology NORMAL (NORMAL); Segmented Neutrophils % 56 % (38-78)
[2020-01-05] MEDS: MEXILETINE 200 MG CAPSULE PO SCH ×2 (08:25→20:50)
[2020-01-05] MEDS: ENOXAPARIN 40 MG/0.4 ML SYRINGE SQ SCH (08:25)
[2020-01-05] MEDS: BENZONATATE 100 MG CAPSULE PO SCH ×3 (08:26→20:50)
[2020-01-05] MEDS: LACTOBACILLUS 1 CAPSULE PO SCH (08:26)
[2020-01-05] MEDS: GABAPENTIN 300 MG CAPSULE PO SCH ×2 (08:26→20:50)
[2020-01-05] MEDS: CARVEDILOL 6.25 MG TABLET PO SCH ×2 (08:26→17:19)
[2020-01-05] MEDS: VITAMIN D3 1,000 UNIT TABLET PO SCH (08:26)
[2020-01-05] MEDS: SOTALOL 80 MG TABLET PO SCH ×2 (08:26→20:50)
[2020-01-05] MEDS: LOSARTAN 25 MG TABLET PO SCH (08:26)
[2020-01-05] MEDS: FUROSEMIDE 40 MG TABLET PO SCH ×2 (08:26→15:56)
[2020-01-05] MEDS: DOCUSATE SODIUM 100 MG CAPSULE PO SCH ×2 (08:26→20:50)
[2020-01-05] MEDS: BACLOFEN 10 MG TABLET PO SCH (08:27)
[2020-01-05] MEDS: POTASSIUM CHLORIDE 10 MEQ TABLET PO SCH ×2 (08:27→17:19)
[2020-01-05] MEDS: SPIRONOLACTONE 25 MG TABLET PO SCH (08:27)
[2020-01-05] MEDS: MEXILETINE 150 MG CAPSULE PO SCH (15:57)
--- NOTE | 2020-01-05 20:24 | Internal Med Progress Note ---
Medical - PN: Subj Patient information: Note initiated : 01/05/20 at 8:19 pm Service Date, if different from initiated Date: [] Patient: Geovanny Berumen 74 y/o M admitted on 01/02/20 for Possible Hit To Head, Cough. Chief Complaint: [] Interval history: Mr. Christianson is a 78 year old M with a history of kidney disease who was brought to the ER due to fall, fever and delirium. Patient is a poor historian and almost all history is obtained from ER physician and chart. His son did provide some information to ER physician late this afternoon. Patient fell at home and stayed on the floor for 5 to 6 hours because he was so weak. This morning patient was found to have mild fever, delirium and generalized weakness. He also has been having cough for a couple of days. ER nurse stated that on patient arrival he did seem confused but this improved with hydration and Tylenol. In the ER, he had one episode of desaturation, 89%. CT chest - Possible subtle areas of groundglass opacity are present. Covid 19 was sent When I saw patient in the ER, other than the symptoms mentioned above, he could not tell me more history. Denies chest pain, headache, dizziness, abdominal pain, or dysuria. 01/02 Pt does not have complaints. Denies headache, fever/chills, n/v, chest pain or abd pain. BP is better controlled He was found to have unequal pupils. No significant neurological deficits. CT of head was ordered but he refused it. CT of head yesterday - no acute change. Blood culture, LA, procalcitonin azithromycin and ceftriaxone were started this morning. I will stop ceftriaxone and start zosyn Mag and phos were given, will repeat them in am 01/03 Pt does not have complaints. Denies headache, fever/chills, n/v, chest pain or abd pain. Pupils are fine. No significant neurological deficits. CT of head today - no acute changes. CT chest - negative Blood culture - no growth so far LA - 1.7 procalcitonin - 8.73 WBC 11.2 I would like to discontinue azithromycin and continue zosyn for today. I could discontinue zosyn tomorrow. closely monitor 01/04 When I saw pt, he was sleeping. He looked happy. He told me that he is fine. Denied fever/chill. Vital signs are relatively fine. WBC normalized, 9.0 today Review of systems: Positive for symptoms mentioned in HP all other systems were reviewed and are negative. - Constitutional Vitals: Vital Signs Temp Pulse Resp BP Pulse Ox 99.5 F H 84 16 123/57 96 01/05/20 20:01 01/05/20 16:01 01/05/20 20:01 01/05/20 20:01 01/05/20 20:01 Period Temp Pulse Resp BP Sys/Urrutia Pulse Ox Last 24 Hr 97.7 F-99.5 F 84 11-20 93-144/42-111 94-97 Intake and Output 01/05/20 01/05/20 01/05/20 05:59 13:59 21:59 Intake Total 1370 420 Output Total 8811 852 1802 Balance -1275 645 -930 Weight 88.178 kg Patient Weight 01/06/20 05:59 Weight 88.178 kg Intake & Output: Intake & Output 01/05/20 01/05/20 01/05/20 05:59 13:59 21:59 Intake Total 1370 420 Output Total 8075 795 3780 Balance -1275 645 -930 Weight 88.178 kg Intake: Oral 1370 420 Output: Void Amount 0345 115 7589 Other: Meal Lunch Percent of Meal Consumed 75% Nourishment/Supplement name Boost Breeze Urine Appearance Clear Urine Color Light Maliha Urine Odor Normal - Additional findings Additional findings: General - No acute distress Eyes - PERRLA, EOM intact ENT no rhinorrhea, no noticeable or palpable swelling, no redness or rash around throat or on face Neck supple, no JVD, no thyromegaly Respiratory: Lungs -clear, no wheezing or crackles. Cardiovascular - RRR no m/r/g, GI - Normal bowel sounds, no distended, soft. Extremeties - No edema, cyanosis or clubbing Hemo/lymphatic/immune no lymphadenopathy Neurological Alert and oriented x 1, no focal neurological deficits. Psychiatry flat affect Medical - PN: Obj Da - Labs CBC & Chem 7: 01/05/20 03:45 01/05/20 03:45 Labs: Abnormal Lab Results 01/05/20 01/05/20 01/04/20 03:45 03:45 04:38 WBC RBC 3.27 L Hgb 11.8 L Hct 34.6 L MCV 105.8 H MCH 36.1 H Seg Neutrophils % Lymphocytes % Monocytes % (Manual) 15 H RBC Morphology Macrocytosis PT INR Sodium Chloride BUN 6 L Creatinine 0.5 L Calcium 8.3 L Total Bilirubin AST Total Creatine Kinase 323 H NT-Pro-B Natriuret Pep Total Protein 5.8 L Albumin 2.8 L Albumin/Globulin Ratio 0.9 L 01/04/20 01/04/20 01/03/20 04:38 04:37 04:48 WBC 13.0 H RBC 3.45 L Hgb 12.7 L Hct 36.1 L MCV 104.6 H MCH 36.8 H Seg Neutrophils % Lymphocytes % 13 L Monocytes % (Manual) RBC Morphology Abnorm A Macrocytosis 1+ A PT INR Sodium 132 L Chloride 94 L BUN 4 L Creatinine 0.5 L Calcium 8.4 L Total Bilirubin AST 55 H Total Creatine Kinase 726 H NT-Pro-B Natriuret Pep Total Protein Albumin Albumin/Globulin Ratio 01/03/20 01/03/20 01/03/20 04:48 04:48 04:48 WBC 12.8 H RBC 3.22 L Hgb 11.8 L Hct 33.7 L MCV 104.7 H MCH 36.6 H Seg Neutrophils % 87 H Lymphocytes % 4 L Monocytes % (Manual) RBC Morphology Abnorm A Macrocytosis 2+ A PT 15.8 H INR 1.2 H Sodium 124 L Chloride 90 L BUN 7 L Creatinine 0.5 L Calcium 8.4 L Total Bilirubin 1.1 H AST 59 H Total Creatine Kinase NT-Pro-B Natriuret Pep 2815.0 H Total Protein Albumin 3.0 L Albumin/Globulin Ratio 01/02/20 22:15 WBC RBC Hgb Hct MCV MCH Seg Neutrophils % Lymphocytes % Monocytes % (Manual) RBC Morphology Macrocytosis PT INR Sodium 120 L Chloride 85 L BUN Creatinine 0.6 L Calcium 8.3 L Total Bilirubin AST Total Creatine Kinase NT-Pro-B Natriuret Pep Total Protein Albumin Albumin/Globulin Ratio Meds: Medications Albuterol Sulfate (Ventolin) 1 puff INH Q3-4HP PRN PRN Reason: Wheezing Aspirin (Aspirin) 81 mg PO HS [facility] Last Admin: 01/04/20 20:47 Dose: 81 mg Documented by: Baclofen (Lioresal) 10 mg PO DAILY [facility] Last Admin: 01/05/20 08:27 Dose: 10 mg Documented by: Benzonatate (Tessalon) 200 mg PO TID [facility] Last Admin: 01/05/20 15:56 Dose: 200 mg Documented by: Carvedilol (Coreg) 6.25 mg PO BIDCC [facility] Last Admin: 01/05/20 17:19 Dose: 6.25 mg Documented by: Docusate Sodium (Colace) 100 mg PO BID [facility] Last Admin: 01/05/20 08:26 Dose: 100 mg Documented by: Enoxaparin Sodium (Lovenox) 40 mg SQ DAILY [facility] Last Admin: 01/05/20 08:25 Dose: 40 mg Documented by: Furosemide (Lasix) 40 mg PO BIDD [facility] Last Admin: 01/05/20 15:56 Dose: 40 mg Documented by: Gabapentin (Neurontin) 600 mg PO BID [facility] Last Admin: 01/05/20 08:26 Dose: 600 mg Documented by: Lactobacillus Rhamnosus (Culturelle) 1 cap PO DAILY [facility] Last Admin: 01/05/20 08:26 Dose: 1 cap Documented by: Lactulose (Cephulac) 10 gm PO DAILYP PRN PRN Reason: Constipation Lorazepam (Ativan) 1 mg PO Q2HP PRN PRN Reason: CIWA-A >6 or HR >100 Last Admin: 01/03/20 22:10 Dose: 1 mg Documented by: Losartan Potassium (Cozaar) 25 mg PO DAILY [facility] Last Admin: 01/05/20 08:26 Dose: 25 mg Documented by: Mexiletine HCl (Mexiletine) 250 mg PO BID [facility] Last Admin: 01/05/20 08:25 Dose: 250 mg Documented by: Mexiletine HCl (Mexilitine) 150 mg PO DAILY@1500 [facility] Last Admin: 01/05/20 15:57 Dose: 150 mg Documented by: Mirtazapine (Remeron) 15 mg PO QHS [facility] Last Admin: 01/04/20 20:47 Dose: 15 mg Documented by: [facility] Last Admin: 01/05/20 17:19 Dose: 10 meq Documented by: Prochlorperazine (Compazine) 5 mg PO Q8HP PRN PRN Reason: Nausea And Vomiting Sodium Chloride (Saline Flush) 10 ml IV Q8 [facility] Last Admin: 01/05/20 14:00 Dose: 10 ml Documented by: Sotalol HCl (Betapace) 80 mg PO BID [facility] Last Admin: 01/05/20 08:26 Dose: 80 mg Documented by: Spironolactone (Aldactone) 25 mg PO QDAY [facility] Last Admin: 01/05/20 08:27 Dose: 25 mg Documented by: Vitamin D (Vitamin D3) 2,000 unit PO DAILY [facility] Last Admin: 01/05/20 08:26 Dose: 2,000 unit Documented by: Medical - PN: A/P - Time Spent With Patient Total time spent is greater than 50% in coordination of care (as documented) at patient's floor/unit and/or counseling patient: - Narrative A/P Narrative: A/P Narrative: Assessment: 1. Fall/syncope 2. Confusion 3. Rhabdomyolysis 4. Cough 5. COPD 6. Chronic systolic CHF, EF 30-35% on 08/19/2019 7. Leukocytosis 8. Hyponatremia 9. Elevation of liver enzymes 10. HTN 11. LBBB on EKG 12. Non-sustained VT Plan: 1. In the ER CT of the head negative acute pathology Echocardiogram on August 19, 2019 -EF of 30 to 35% EKG no arrhythmia Carotid ultrasound on August 19, 2019 - Endovascular stent in the right internal carotid artery. No stenosis or flow disturbance Heterogeneous atherosclerotic plaque in the proximal left internal carotid artery and distal left common carotid artery. 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 For confusion, CT of the head negative acute pathology. As per ER physician Dr. Dyer, confusion over the past 2 years. Discussed with daughter who endorsed that he has been having confusion and progressively worsening over the past 1 or 2 years. Monitor PT 3. CK trending down to normal IVF Repeat renal function in the morning 4. Patient has a dry cough Covid 19 screen - pending Droplet plus precaution 5. COPD seems to be stable 6. Intake and output Daily weight Home Lasix is on hold 7. Na 139, IVF 8. Liver enzymes went down to normal 9. Continue carvedilol and losartan for high blood pressure 10. EKG showed LBBB. No previous EKG available No chest pain Troponin negative Started Aspirin but Lipitor did not order because pt has Rhabdomyolysis 11. BNP 2815 Echocardiogram on August 19, 2019 -EF of 30 to 35% intake and output continue losartan Home meds include lasix 80mg po bid. I will start 40mg bid. 12. For non-sustained VT, K and Mag WNL resumed home mediletine 250mg bid and 150mg every 3pm. Daughter states he has an AICD. Contacted AICD tech who verified the AICD works appropriately. 13. DVT prophylaxis: Lovenox 14. CODE STATUS: Full Medical - PN: Qual - VTE Deep Vein Thrombosis/Pulmonary Embolism Present on Admission: No
[2020-01-05] MEDS: MIRTAZAPINE 15 MG TABLET PO SCH (20:50)
[2020-01-05] MEDS: ASPIRIN 81 MG TAB.CHEW PO SCH (20:50)
[2020-01-06 05:24] LABS: Hematocrit 33.6 % (40.1-51.0); Hemoglobin 11.8 g/dL (13.7-17.5); Mean Cell Volume 105.7 fL (80.0-100.0); Mean Corpuscular HGB Conc 35.1 g/dL (31.0-36.0); Mean Platelet Volume 9.3 fL (7.4-10.4); Platelet Count 244 K/mcL (140-440); RBC 3.18 M/mcL (4.63-6.08); Red Cell Distribution Width 13.3 % (11.5-14.5); WBC 9.5 K/mcL (4.50-11.00)
[2020-01-06] MEDS: 0.9 % SODIUM CHLORIDE 10 ML SYRINGE IV SCH ×4 (05:26→22:35)
[2020-01-06 06:20] LABS: Band Neutrophils % 3 % (0-10); Eosinophils % (Manual) 2 % (0-7); Lymphocytes % 16 % (15-49); Monocytes % (Manual) 20 % (1-12); Platelet Estimate NORMAL (NORMAL); RBC Morphology NORMAL (NORMAL); Segmented Neutrophils % 59 % (38-78)
[2020-01-06 08:38] LABS: ALT/SGPT 23 U/l (0-40); AST/SGOT 22 U/l (0-37); Albumin 2.9 gm/dL (3.2-5.2); Albumin/Globulin Ratio 0.9 (1.0-2.3); Alkaline Phosphatase 63 U/L (39-117); Bilirubin,Direct 0.2 mg/dL (0.0-0.3); Bilirubin,Total 0.8 mg/dL (0.0-1.0); Blood Urea Nitrogen 7 mg/dl (8-23); Calcium 8.8 mg/dl (8.6-10.4); Carbon Dioxide 25 mmol/L (22-30); Chloride 98 mmol/L (96-108); Globulin 3.2 gm/dL (2.2-3.7); Glomerular Filtration Rate 100; Glucose 100 mg/dL (70-105); Lactate Dehydrogenase 292 U/L (94-250); Phosphorous 3.4 mg/dL (2.7-4.5); Triglycerides 63 mg/dl (<150)
[2020-01-06] MEDS: VITAMIN D3 1,000 UNIT TABLET PO SCH (08:41)
[2020-01-06] MEDS: LACTOBACILLUS 1 CAPSULE PO SCH (08:41)
[2020-01-06] MEDS: GABAPENTIN 300 MG CAPSULE PO SCH ×2 (08:41→20:23)
[2020-01-06] MEDS: DOCUSATE SODIUM 100 MG CAPSULE PO SCH ×2 (08:41→20:22)
[2020-01-06] MEDS: FUROSEMIDE 40 MG TABLET PO SCH (08:42)
[2020-01-06] MEDS: CARVEDILOL 6.25 MG TABLET PO SCH (08:42)
[2020-01-06] MEDS: LOSARTAN 25 MG TABLET PO SCH (08:42)
[2020-01-06] MEDS: POTASSIUM CHLORIDE 10 MEQ TABLET PO SCH ×2 (08:42→17:31)
[2020-01-06] MEDS: BACLOFEN 10 MG TABLET PO SCH (08:42)
[2020-01-06] MEDS: SOTALOL 80 MG TABLET PO SCH ×2 (08:42→20:23)
[2020-01-06] MEDS: BENZONATATE 100 MG CAPSULE PO SCH ×3 (08:42→20:24)
[2020-01-06] MEDS: SPIRONOLACTONE 25 MG TABLET PO SCH (08:43)
[2020-01-06] MEDS: ENOXAPARIN 40 MG/0.4 ML SYRINGE SQ SCH (08:43)
[2020-01-06] MEDS: MEXILETINE 200 MG CAPSULE PO SCH ×2 (10:29→20:25)
[2020-01-06] MEDS ORDERED: POLYETHYLENE GLYCOL 3350 17 GM PACKET PO PRN ×2 (11:18→14:53)
--- NOTE | 2020-01-06 14:08 | Internal Med Progress Note ---
Medical - PN: Subj Patient information: Note initiated : 01/06/20 at 2:05 pm Service Date, if different from initiated Date: [] Patient: Geovanny Berumen 74 y/o M admitted on 01/02/20 for Possible Hit To Head, Cough. Chief Complaint: [] Interval history: Mr. Christianson is a 78 year old M with a history of kidney disease who was brought to the ER due to fall, fever and delirium. Patient is a poor historian and almost all history is obtained from ER physician and chart. His son did provide some information to ER physician late this afternoon. Patient fell at home and stayed on the floor for 5 to 6 hours because he was so weak. This morning patient was found to have mild fever, delirium and generalized weakness. He also has been having cough for a couple of days. ER nurse stated that on patient arrival he did seem confused but this improved with hydration and Tylenol. In the ER, he had one episode of desaturation, 89%. CT chest - Possible subtle areas of groundglass opacity are present. Covid 19 was sent When I saw patient in the ER, other than the symptoms mentioned above, he could not tell me more history. Denies chest pain, headache, dizziness, abdominal pain, or dysuria. 01/02 Pt does not have complaints. Denies headache, fever/chills, n/v, chest pain or abd pain. BP is better controlled He was found to have unequal pupils. No significant neurological deficits. CT of head was ordered but he refused it. CT of head yesterday - no acute change. Blood culture, LA, procalcitonin azithromycin and ceftriaxone were started this morning. I will stop ceftriaxone and start zosyn Mag and phos were given, will repeat them in am 01/03 Pt does not have complaints. Denies headache, fever/chills, n/v, chest pain or abd pain. Pupils are fine. No significant neurological deficits. CT of head today - no acute changes. CT chest - negative Blood culture - no growth so far LA - 1.7 procalcitonin - 8.73 WBC 11.2 I would like to discontinue azithromycin and continue zosyn for today. I could discontinue zosyn tomorrow. closely monitor 01/04 When I saw pt, he was sleeping. He looked happy. He told me that he is fine. Denied fever/chill. Vital signs are relatively fine. WBC normalized, 9.0 today 01/05-patient clinically improved. White count now 9.5. Sodium improved 134. Much improved strength and able to transfer out of bed. T-max 100.1. Systolic stable - Constitutional Vitals: Vital Signs Temp Pulse Resp BP Pulse Ox 98.7 F 84 18 98/57 96 01/06/20 12:01 01/05/20 16:01 01/06/20 12:10 01/06/20 12:01 01/06/20 12:01 Period Temp Pulse Resp BP Sys/Urrutia Pulse Ox Last 24 Hr 97.7 F-100.1 F 84 13-21 93-143/46-75 94-98 Intake and Output 01/06/20 01/06/20 01/06/20 05:59 13:59 21:59 Output Total 0 401 Balance 0 -401 Intake & Output: Intake & Output 01/06/20 01/06/20 01/06/20 05:59 13:59 21:59 Output Total 0 401 Balance 0 -401 Output: Void Amount 0 400 # of times incontinent of urine 1 General appearance: no acute distress Exam: Alert oriented No anxiety Able to tolerate food but frequently chokes on thin liquids. Nonlabored breathing Nondistended abdomen Medical - PN: Obj Da - Labs CBC & Chem 7: 01/06/20 04:30 01/06/20 07:12 Labs: Abnormal Lab Results 01/06/20 01/06/20 01/05/20 07:12 04:30 03:45 WBC RBC 3.18 L Hgb 11.8 L Hct 33.6 L MCV 105.7 H MCH 37.1 H Lymphocytes % Monocytes % (Manual) 20 H RBC Morphology Macrocytosis Sodium Chloride BUN 7 L 6 L Creatinine 0.6 L 0.5 L Calcium 8.3 L AST Lactate Dehydrogenase 292 H Total Creatine Kinase Total Protein 5.8 L Albumin 2.9 L 2.8 L Albumin/Globulin Ratio 0.9 L 0.9 L 01/05/20 01/04/20 01/04/20 03:45 04:38 04:38 WBC RBC 3.27 L Hgb 11.8 L Hct 34.6 L MCV 105.8 H MCH 36.1 H Lymphocytes % Monocytes % (Manual) 15 H RBC Morphology Macrocytosis Sodium 132 L Chloride 94 L BUN 4 L Creatinine 0.5 L Calcium 8.4 L AST 55 H Lactate Dehydrogenase Total Creatine Kinase 323 H Total Protein Albumin Albumin/Globulin Ratio 01/04/20 04:37 WBC 13.0 H RBC 3.45 L Hgb 12.7 L Hct 36.1 L MCV 104.6 H MCH 36.8 H Lymphocytes % 13 L Monocytes % (Manual) RBC Morphology Abnorm A Macrocytosis 1+ A Sodium Chloride BUN Creatinine Calcium AST Lactate Dehydrogenase Total Creatine Kinase Total Protein Albumin Albumin/Globulin Ratio Meds: Medications Albuterol Sulfate (Ventolin) 1 puff INH Q3-4HP PRN PRN Reason: Wheezing Aspirin (Aspirin) 81 mg PO HS [facility] Last Admin: 01/05/20 20:50 Dose: 81 mg Documented by: Baclofen (Lioresal) 10 mg PO DAILY [facility] Last Admin: 01/06/20 08:42 Dose: 10 mg Documented by: Benzonatate (Tessalon) 200 mg PO TID [facility] Last Admin: 01/06/20 08:42 Dose: 200 mg Documented by[facility] Admin: 01/06/20 08:42 Dose: 6.25 mg Documented by: Docusate Sodium (Colace) 100 mg PO BID [facility] Last Admin: 01/06/20 08:41 Dose: 100 mg Documented by: Enoxaparin Sodium (Lovenox) 40 mg SQ DAILY [facility] Last Admin: 01/06/20 08:43 Dose: 40 mg Documented by: Furosemide (Lasix) 40 mg PO BIDD [facility] Last Admin: 01/06/20 08:42 Dose: 40 mg Documented by: Gabapentin (Neurontin) 600 mg PO BID [facility] Last Admin: 01/06/20 08:41 Dose: 600 mg Documented by: Lactobacillus Rhamnosus (Culturelle) 1 cap PO DAILY [facility] Last Admin: 01/06/20 08:41 Dose: 1 cap Documented by: Lactulose (Cephulac) 10 gm PO DAILYP PRN PRN Reason: Constipation Lorazepam (Ativan) 1 mg PO Q2HP PRN PRN Reason: CIWA-A >6 or HR >100 Last Admin: 01/03/20 22:10 Dose: 1 mg Documented by: Losartan Potassium (Cozaar) 25 mg PO DAILY [facility] Last Admin: 01/06/20 08:42 Dose: 25 mg Documented by: Mexiletine HCl (Mexiletine) 250 mg PO BID [facility] Last Admin: 01/06/20 10:29 Dose: 250 mg Documented by: Mexiletine HCl (Mexilitine) 150 mg PO DAILY@1500 [facility] Last Admin: 01/05/20 15:57 Dose: 150 mg Documented by: Mirtazapine (Remeron) 15 mg PO QHS [facility] Last Admin: 01/05/20 20:50 Dose: 15 mg Documented by: Polyethylene Glycol (Miralax) 17 gm PO DAILYP PRN PRN Reason: Constipation Last Admin: 01/06/20 12:30 Dose: 17 gm Documented by: Potassium Chloride (Kdur) 10 meq PO BIDCC [facility] Last Admin: 01/06/20 08:42 Dose: 10 meq Documented by: Prochlorperazine (Compazine) 5 mg PO Q8HP PRN PRN Reason: Nausea And Vomiting Sodium Chloride (Saline Flush) 10 ml IV Q8 [facility] Last Admin: 01/06/20 05:26 Dose: 10 ml Documented by: Sotalol HCl (Betapace) 80 mg PO BID [facility] Last Admin: 01/06/20 08:42 Dose: 80 mg Documented by: Spironolactone (Aldactone) 25 mg PO QDAY [facility] Last Admin: 01/06/20 08:43 Dose: 25 mg Documented by: Vitamin D (Vitamin D3) 2,000 unit PO DAILY [facility] Last Admin: 01/06/20 08:41 Dose: 2,000 unit Documented by: Medical - PN: A/P - Time Spent With Patient Total time spent is greater than 50% in coordination of care (as documented) at patient's floor/unit and/or counseling patient: 25 - 35 minutes - Narrative A/P Narrative: * Fall/syncope and found down. Extensive work-up unremarkable so far. Prior e cho EF 35%/no telemetry events/negative neuroimaging. * Rhabdomyolysis clinically improved * Patient COPD stable on bronchodilators. Await COVID 19 test * Hyponatremia improved * Elevated LFTs improved * NYHA class III systolic heart failure status post ICD/pacemaker. History of nonsustained V. tach. Continue beta-namrata/spironolactone/losartan. On Pradaxa for anticoagulation. 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 Continue sotalol/mexiletine. Status post ICD * Anxiety disorder on mirtazapine/as needed Ativan * Prophylaxis DC Lovenox Plan * Initiate mobilization/therapies * Case management to coordinate discharge planning * Pre-existing well condition management as above * Possible discharge in 48 hours * nutrition support Medical - PN: Qual - VTE Deep Vein Thrombosis/Pulmonary Embolism Present on Admission: No
[2020-01-06] MEDS ORDERED: PROCHLORPERAZINE 10 MG TABLET PO PRN (14:53)
[2020-01-06] MEDS ORDERED: LACTULOSE 20 GM/30 ML ORAL.SOL PO PRN (14:53)
[2020-01-06] MEDS ORDERED: LORazepam 1 MG TABLET PO PRN (14:53)
[2020-01-06] MEDS ORDERED: ALBUTEROL SULFATE 200 PUFF INHALER INH PRN (14:53)
[2020-01-06] MEDS ORDERED: MEXILETINE 150 MG CAPSULE PO SCH (15:00)
[2020-01-06 17:25] LABS: Appearance,Urine CLEAR; Bilirubin,Urine NEG (NEG); Color,Urine YELLOW; Culture Indicated,Urine NO; Glucose,Urine (UA) NEGATIVE (NEG); Ketones,Urine NEG (NEG); Leukocyte Esterase,Urine NEG /uL (NEG); Nitrate,Urine NEG (NEG); Protein,Urine NEG (NEG); Specific Gravity,Urine 1.014 (1.000-1.035); Urine Blood NEG mg/dL (<0.03)
[2020-01-06] MEDS ORDERED: CARVEDILOL 12.5 MG TABLET PO SCH (17:30)
[2020-01-06] MEDS: CARVEDILOL 12.5 MG TABLET PO SCH (17:31)
[2020-01-06] MEDS: DABIGATRAN ETEXILATE MESYLATE 75 MG CAPSULE PO SCH (20:25)
[2020-01-06] MEDS ORDERED: ASPIRIN 81 MG TAB.CHEW PO SCH (21:00)
[2020-01-06] MEDS ORDERED: DABIGATRAN ETEXILATE MESYLATE 75 MG CAPSULE PO SCH (21:00)
[2020-01-06] MEDS ORDERED: SIMVASTATIN 10 MG TABLET PO SCH ×2 (21:00)
[2020-01-06] MEDS ORDERED: EZETIMIBE 10 MG TABLET PO SCH ×2 (21:00)
[2020-01-06] MEDS ORDERED: MIRTAZAPINE 15 MG TABLET PO SCH (21:00)
[2020-01-06] MEDS ORDERED: FUROSEMIDE 80 MG TABLET PO SCH ×2 (21:00)
[2020-01-06] MEDS ORDERED: MEXILETINE HCL PO SCH (21:00)
[2020-01-07] MEDS: 0.9 % SODIUM CHLORIDE 10 ML SYRINGE IV SCH (04:28)
[2020-01-07 06:21] LABS: Hematocrit 34.6 % (40.1-51.0); Hemoglobin 11.7 g/dL (13.7-17.5); Mean Cell Volume 107.1 fL (80.0-100.0); Mean Corpuscular HGB Conc 33.8 g/dL (31.0-36.0); Mean Platelet Volume 9.3 fL (7.4-10.4); Platelet Count 263 K/mcL (140-440); RBC 3.23 M/mcL (4.63-6.08); WBC 10.1 K/mcL (4.50-11.00)
[2020-01-07 07:17] LABS: Eosinophils % (Manual) 3 % (0-7); Lymphocytes % 13 % (15-49); Macrocytosis 2+ (NONE SEEN); Monocytes % (Manual) 17 % (1-12); Platelet Estimate NORMAL (NORMAL); RBC Morphology ABNORM (NORMAL); Reactive Lymphocytes 1 % (0-2); Segmented Neutrophils % 66 % (38-78)
[2020-01-07] MEDS ORDERED: MAGNESIUM OXIDE 400 MG TABLET PO SCH ×2 (09:00)
[2020-01-07] MEDS ORDERED: LACTOBACILLUS 1 CAPSULE PO SCH (09:00)
[2020-01-07] MEDS ORDERED: BACLOFEN 10 MG TABLET PO SCH (09:00)
[2020-01-07] MEDS ORDERED: VITAMIN D3 1,000 UNIT TABLET PO SCH (09:00)
[2020-01-07] MEDS ORDERED: SPIRONOLACTONE 25 MG TABLET PO SCH (09:00)
[2020-01-07] MEDS ORDERED: LOSARTAN 25 MG TABLET PO SCH (09:00)
[2020-01-07] MEDS ORDERED: LORATADINE 10 MG TABLET PO SCH ×2 (09:00)
[2020-01-07] MEDS ORDERED: FUROSEMIDE 80 MG TABLET PO SCH ×2 (09:00)
[2020-01-07] MEDS: DABIGATRAN ETEXILATE MESYLATE 75 MG CAPSULE PO SCH (09:41)
[2020-01-07] MEDS: SOTALOL 80 MG TABLET PO SCH (09:42)
[2020-01-07] MEDS: CARVEDILOL 12.5 MG TABLET PO SCH (09:42)
[2020-01-07] MEDS: GABAPENTIN 300 MG CAPSULE PO SCH (09:49)
--- NOTE | 2020-01-07 09:49 | Discharge Summary ---
Medical - DS: Prov Patient information: Note initiated : 01/07/20 at 9:47 am Service Date, if different from initiated Date: [] Patient: Geovanny Berumen 74 y/o M admitted on 01/02/20 for Possible Hit To Head, Cough. Chief Complaint: [] Date of admission: 01/02/20 19:13 Discharge date: 01/07/20 Primary care physician: Trina Haddad Consults: 01/02/20 Consult to Physician [CONS] Stat Comment: Consulting Provider: Darlni Hollins Reason For Exam: Physician to Consult 01/06/20 12:02 Consult to Physician [CONS] Routine Comment: Consulting Provider: [facility] Reason For Exam: Physician to Consult Medical - DS: Meds - Discharge Medications Active and Home Medications: Home Medications Carvedilol [Coreg] 12.5 mg PO BID 05/06/15 [History Confirmed 01/04/20 Last Taken Unknown] Ezetimibe/Simvastatin [Vytorin 10-10 mg Tablet] 1 each PO HS 05/06/15 [History Confirmed 01/04/20 Last Taken Unknown] Furosemide [Lasix] 120 mg PO QAM 05/06/15 [History Confirmed 01/04/20 Last Taken Unknown] Gabapentin 300 mg PO BID 05/06/15 [History Confirmed 01/04/20 Last Taken Unknown] Loratadine [Loradamed] 10 mg PO DAILY 05/06/15 [History Confirmed 01/04/20 Last Taken Unknown] Losartan [Cozaar] 12.5 mg PO DAILY 05/06/15 [History Confirmed 01/04/20 Last Taken Unknown] Mexiletine [Mexilitine] 150 mg PO DAILY 05/06/15 [History Confirmed 01/04/20 L ast Taken Unknown] Potassium Chloride [Kdur] 10 meq PO BID 05/06/15 [History Confirmed 01/04/20 Last Taken Unknown] traMADol [Ultram] 1 tab PO QID PRN 05/06/15 [History Confirmed 01/04/20 Last Taken Unknown] Baclofen [Lioresal] 10 mg PO DAILY 01/04/20 [History Confirmed 01/04/20 Last Taken Unknown] Dabigatran Etexilate Mesylate [Pradaxa] 150 mg PO BID 01/04/20 [History Confirmed 01/04/20 Last Taken Unknown] Famciclovir [Famvir] 500 mg PO BID 01/04/20 [History Confirmed 01/04/20 Last Taken Unknown] Furosemide [Lasix] 80 mg PO QPM 01/04/20 [History Confirmed 01/04/20 Last Taken Unknown] Lactobacillus Acidophilus [Acidophilus Lactobacilli] 1 tab PO DAILY 01/04/20 [History Confirmed 01/04/20 Last Taken Unknown] Magnesium Oxide 400 400 mg PO DAILY 01/04/20 [History Confirmed 01/04/20 Last Taken Unknown] Mexiletine HCl 1 tab PO BID 01/04/20 [History Confirmed 01/04/20 Last Taken Unknown] Mirtazapine [Remeron] 15 mg PO QHS 01/04/20 [History Confirmed 01/04/20 Last Taken Unknown] [employer]S/Dha/Epa/Fish Oil [Fish Oil [employer] Softgel] 1,000 mg PO BID 01/04/20 [History Confirmed 01/04/20 Last Taken Unknown] Sotalol HCl [Sorine] 80 mg PO BID 01/04/20 [History Confirmed 01/04/20 Last Taken Unknown] Spironolactone 25 mg PO QDAY 01/04/20 [History Confirmed 01/04/20 Last Taken Unknown] Vitamin D3 2,000 unit PO DAILY 01/04/20 [History Confirmed 01/04/20 Last Taken Unknown] Medical - DS: Hosp Hospital Course: Discharge diagnosis * Fall/syncope and found down. Extensive work-up unremarkable so far. Prior echo EF 35%/no telemetry events/negative neuroimaging. Patient is clinically back to baseline. Discharging to SNF for continued rehab * Rhabdomyolysis clinically resolved * Patient COPD stable on bronchodilators. COVID negative * Hyponatremia improved * Elevated LFTs improved * NYHA class III systolic heart failure status post ICD/pacemaker. History of nonsustained V. tach. Continue beta-namrata/spironolactone/losartan. On Pradaxa for anticoagulation. 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 Continue sotalol/mexiletine. Status post ICD * Anxiety disorder on mirtazapine/as needed Ativan Brief hospital course Mr. Christianson is a 78 year old M with a history of kidney disease who was brought to the ER due to fall, fever and delirium. Patient is a poor historian and almost all history is obtained from ER physician and chart. His son did provide some information to ER physician late this afternoon. Patient fell at home and stayed on the floor for 5 to 6 hours because he was so weak. This morning patient was found to have mild fever, delirium and generalized weakness. He also has been having cough for a couple of days. ER nurse stated that on patient arrival he did seem confused but this improved with hydration and Tylenol. In the ER, he had one episode of desaturation, 89%. CT chest - Possible subtle areas of groundglass opacity are present. Covid 19 was sent When I saw patient in the ER, other than the symptoms mentioned above, he could not tell me more history. Denies chest pain, headache, dizziness, abdominal pain, or dysuria. 01/02 Pt does not have complaints. Denies headache, fever/chills, n/v, chest pain or abd pain. BP is better controlled He was found to have unequal pupils. No significant neurological deficits. CT of head was ordered but he refused it. CT of head yesterday - no acute change. Blood culture, LA, procalcitonin azithromycin and ceftriaxone were started this morning. I will stop ceftriaxone and start zosyn Mag and phos were given, will repeat them in am 01/03 Pt does not have complaints. Denies headache, fever/chills, n/v, chest pain or abd pain. Pupils are fine. No significant neurological deficits. CT of head today - no acute changes. CT chest - negative Blood culture - no growth so far LA - 1.7 procalcitonin - 8.73 WBC 11.2 I would like to discontinue azithromycin and continue zosyn for today. I could discontinue zosyn tomorrow. closely monitor 01/04 When I saw pt, he was sleeping. He looked happy. He told me that he is fine. Denied fever/chill. Vital signs are relatively fine. WBC normalized, 9.0 today 01/05-patient clinically improved. White count now 9.5. Sodium improved 134. Much improved strength and able to transfer out of bed. T-max 100.1. Systolic stable 01/06-patient doing well. No overnight events. No concerns per staff. No fever chills nausea vomiting. Ambulating and tolerating physical therapy. Stable labs and hemodynamics. Potassium normalized. Discharge diagnosis: . - Time Spent with Patient Total time spent providing and/or coordinating discharge services: Greater than 30 minutes Medical - DS: Exam - Constitutional Vitals: Vital Signs Temp Pulse Resp BP BP Pulse Ox 01/07/20 09:04 118/46 01/07/20 07:54 98.6 F 57 L 18 91/56 94 01/07/20 04:05 98.3 F 87 16 137/73 96 01/06/20 23:10 98.9 F 82 16 112/62 96 01/06/20 19:00 99.3 F H 83 18 104/55 92 01/06/20 18:00 98.9 F 86 18 119/58 96 01/06/20 16:34 99.1 F H 01/06/20 16:01 128/59 01/06/20 15:02 18 01/06/20 13:17 23 H 93/42 01/06/20 12:53 18 97/55 01/06/20 12:10 18 01/06/20 12:01 98.7 F 18 98/57 96 01/06/20 10:00 19 Intake and Output 01/06/20 01/07/20 01/07/20 21:59 05:59 13:59 Intake Total 720 360 Output Total 1050 2 Balance -330 358 Intake: Oral 720 360 Output: Urine Catheter Amount 1050 # of times incontinent of urine 2 Other: Meal Dinner Percent of Meal Consumed 50% Feeding Ability Independent Urine Appearance Clear Urine Color Bright Yellow Urine Odor Normal # Voids 1 1 Weight 196 lb 8 oz Medical - DS: Data Labs on day of discharge: Labs from last 24 hours 01/07/20 01/06/20 01/02/20 05:07 16:27 15:34 WBC 10.1 RBC 3.23 L Hgb 11.7 L Hct 34.6 L MCV 107.1 H MCH 36.2 H MCHC 33.8 RDW 13.0 Plt Count 263 MPV 9.3 Total Counted 100 Seg Neutrophils % 66 Band Neutrophils % Not Reportable Lymphocytes % 13 L Monocytes % (Manual) 17 H Eosinophils % (Manual) 3 Reactive Lymphocytes 1 Platelet Estimate Normal RBC Morphology Abnorm A Macrocytosis 2+ A Urine Color Yellow Urine Appearance Clear Urine pH 7.0 Ur Specific [place] 1.014 Urine Protein Neg Urine Glucose (UA) Negative Urine Ketones Neg Urine Occult Blood Neg Urine Nitrate Neg Urine Bilirubin Neg Urine Urobilinogen 4.0 A Ur Leukocyte Esterase Neg Ur Culture Indicated? No Nasal/Oral COVID-19 PCR No ncov rna detected COVID-19 PCR Interp Cov rna not detected Medical - DS: A/P - Patient/Caregiver Discharge Instructions Activity: as per physical therapy, increase activity as tolerated Diet: Regular Diet Additional Instructions: Follow-up PCP in 5 days I recommend SNF physician to check CBC BMP UA as a posthospital follow-up in 1 week. Continue aggressive bowel regimen to prevent constipation Continue fall precautions Continue aggressive PT OT evaluation and treatment at [facility]. ST eval and treatment if indicated High protein calorie supplements All meals on chair sitting upright at 90 degrees to prevent aspiration Return to ER if worsening fever chills shortness of breath, diarrhea, bleeding Continue diet and activity as advised Discussed importance of medication adherence Please review medication list with patient prior to discharge Please schedule follow-up with PCP/Providers prior to discharge and provide printouts - Follow up Plan Follow up with: Trina Haddad MD [Primary Care Provider] - Disposition: [facility], [place] Prognosis: Fair Rehab Potential: Fair I certify that the patient requires SNF services: Yes Overall status at discharge: patient is progressing back to baseline Medical - DS: Qual - VTE Deep Vein Thrombosis/Pulmonary Embolism Present on Admission: No
[2020-01-07] MEDS: DOCUSATE SODIUM 100 MG CAPSULE PO SCH (09:50)
[2020-01-07] MEDS: BENZONATATE 100 MG CAPSULE PO SCH (09:50)
[2020-01-07] MEDS: POTASSIUM CHLORIDE 10 MEQ TABLET PO SCH (09:51)
[2020-01-07] MEDS: MEXILETINE 200 MG CAPSULE PO SCH (10:00)
== END 2020-01-07 14:15 | DRG 312 ==
LOC: ICU 11:21 → ED 11:21 → OBSVTOIN 19:13 → ICU 19:14 → MEDSUR 01-06 17:00
PROVIDERS: ADMIT Internal Medicine; ATTEND Internal Medicine